=== PATIENT | male | born 1990 | race African-American/Black ===

== ENCOUNTER 2024-06-30 16:15 | Emergency (ER) | payer SELFPAY ==
[~2024-06-30] VITALS: Ht 167.6 cm; Wt 54.4 kg
[2024-06-30 16:18] VITALS: O2SAT 99
[2024-06-30 16:20] VITALS: BP 133/81; PULSE 87; RESP 16; TEMP 36.6; O2SAT 99
[2024-06-30] MEDS: KETOROLAC 30MG/ML VIAL IM STA (16:56)
[2024-06-30] MEDS ORDERED: ACET-2708 MT (16:57)
== END 2024-06-30 17:31 | disposition home or self-care (01) ==
LOC: ER 16:15
DX: S62.396A Other fracture of fifth metacarpal bone, right hand, initial encounter for closed fracture (principal); W19.XXXA Unspecified fall, initial encounter; Y93.89 Activity, other specified; Y92.89 Other specified places as the place of occurrence of the external cause; Y99.8 Other external cause status
CPT/HCPCS: 99283; 73120; 29125; 96372; J1885

== ENCOUNTER 2024-10-15 07:45 | Emergency (ER) | payer OTHER ==
[~2024-10-15] VITALS: Ht 167.6 cm; Wt 54.0 kg
[~2024-10-15 07:45] MED LIST: ACET-2708 MT
[2024-10-15 07:52] VITALS: O2SAT 98
[2024-10-15] MEDS: IBUPROFEN 600MG TABLET PO ONE (08:14)
[2024-10-15] MEDS ORDERED: NAPR-681 MT (09:14)
[2024-10-15 09:42] VITALS: BP 107/64; PULSE 58; RESP 16; TEMP 36.5; O2SAT 100
== END 2024-10-15 09:49 | disposition home or self-care (01) ==
LOC: ER 07:45
DX: S63.615A Unspecified sprain of left ring finger, initial encounter (principal); W23.0XXA Caught, crushed, jammed, or pinched between moving objects, initial encounter; Y93.89 Activity, other specified; Y92.89 Other specified places as the place of occurrence of the external cause; Y99.8 Other external cause status
CPT/HCPCS: 73130; 99283